=== PATIENT | male | born 1970 | race African-American/Black ===

== ENCOUNTER 2021-09-03 10:22 | Inpatient (IN) | payer MEDICAID ==
[~2021-09-03] VITALS: Ht 182.9 cm; Wt 104.3 kg
[2021-09-03] MEDS ORDERED: SODIUM CHLORIDE 0.9% 1,000 ML IV ONE ×2 (11:00)
[2021-09-03 11:21] LABS: BASOPHILS % 0.9 % (0.0-2.0); EOSINOPHILS % 0.8 % (0.0-5.0); HEMATOCRIT. 40.3 % (42.0-52.0); HEMOGLOBIN. 14.7 g/dL (14.0-18.0); LYMPHOCYTES % 25.5 % (20.0-50.0); MEAN CORPUSCULAR HEMOGLOBIN 32.2 pg (28.0-32.0); MEAN CORPUSCULAR VOLUME 88.3 fL (80.0-94.0); MEAN PLATELET VOLUME 10.8 fl (7.4-10.4); MONOCYTES % 6.3 % (2.0-8.0); NEUTROPHILS % 66.5 % (40.0-76.0); PLATELET 227 x1000/uL (130-400); RED BLOOD CELL COUNT 4.56 mill/uL (4.7-6.1); RED CELL DISTRIBUTION WIDTH 13.5 % (11.6-14.6)
[2021-09-03 11:27] LABS: CHLORIDE 95 mEq/L (98-107)
[2021-09-03 11:45] LABS: CLARITY URINE CLEAR (CLEAR); COLOR URINE YELLOW (YELLOW); KETONES URINE 1+ (NEGATIVE); LEUKOCYTE ESTERASE URINE NEGATIVE (NEGATIVE); NITRITE URINE NEGATIVE (NEGATIVE); OCCULT BLOOD URINE TRACE (NEGATIVE); PH URINE 5.5 (4.5-8.0); PROTEIN URINE NEGATIVE (NEGATIVE); SPECIFIC GRAVITY URINE 1.038 (1.005-1.030); UROBILINOGEN URINE 0.2 E.U./dL (0.2-1.0)
[2021-09-03 12:28] LABS: BETA HYDROXYBUTYRATE 1.8 mMol/L (0.0-0.3)
[2021-09-03] MEDS ORDERED: INSULIN REGULAR (HUMULIN R) 300UNITS/3ML VIAL IV ONE (13:00)
[2021-09-03] MEDS ORDERED: MAGNESIUM/ALUMINUM HYDROXIDE/SIMETHICONE 30ML UDC PO PRN (16:45)
[2021-09-03] MEDS ORDERED: DIPHENHYDRAMINE 50MG/ML VIAL IV PRN (16:45)
[2021-09-03] MEDS ORDERED: ZOLPIDEM TARTRATE 5MG TABLET PO PRN (16:45)
[2021-09-03] MEDS ORDERED: ONDANSETRON HCL 4MG/2ML INJ IV PRN (16:45)
[2021-09-03] MEDS ORDERED: ACETAMINOPHEN 325MG TABLET PO PRN ×2 (16:45)
[2021-09-03] MEDS ORDERED: CLONIDINE 0.1MG TABLET PO PRN (16:45)
[2021-09-03] MEDS ORDERED: DEXTROSE 50% WATER 50ML SYRINGE IV PRN (16:45)
[2021-09-03] MEDS: BLOOD SUGAR DIAGNOSTIC STRIP TEST SCH ×2 (17:00→21:29)
[2021-09-03] MEDS: INSULIN LISPRO 100 UNITS/ML SUBCUT SCH ×2 (18:27→21:30)
[2021-09-03] MEDS: METFORMIN HCL 500MG TABLET PO SCH (18:32)
[2021-09-03 20:45] VITALS: BP 140/80
[2021-09-03] MEDS ORDERED: ATORVASTATIN CALCIUM 20MG TABLET PO SCH (21:00)
[2021-09-03] MEDS: SODIUM CHLORIDE 0.9% INJ 3ML FLUSH IVF SCH (21:34)
[2021-09-03] MEDS ORDERED: INSULIN GLARGINE UD 100 UNITS/ML SYR SUBCUT SCH (22:00)
[2021-09-04] VITALS: BP 125/74
[2021-09-04 04:00] VITALS: BP 145/78
[2021-09-04] MEDS: SODIUM CHLORIDE 0.9% INJ 3ML FLUSH IVF SCH ×2 (05:29→13:05)
[2021-09-04] MEDS: BLOOD SUGAR DIAGNOSTIC STRIP TEST SCH ×2 (07:29→11:57)
[2021-09-04 07:31] LABS: CHLORIDE 107 mEq/L (98-107)
[2021-09-04 07:37] LABS: PHOSPHORUS 3.2 mg/dL (2.5-4.9)
[2021-09-04 08:00] VITALS: BP 113/62
[2021-09-04] MEDS ORDERED: CHOLECALCIFEROL (D3) 1000 UNIT TABLET PO SCH (09:00)
[2021-09-04] MEDS: METFORMIN HCL 500MG TABLET PO SCH (09:05)
[2021-09-04] MEDS: INSULIN LISPRO 100 UNITS/ML SUBCUT SCH ×2 (09:13→13:03)
[2021-09-04 12:00] VITALS: BP 107/69
[2021-09-04 15:27] VITALS: BP 113/62
== END 2021-09-04 16:08 | disposition home or self-care (01) | DRG 420 ==
LOC: ER 10:22 → 6EST 14:29 → EDBEDREQ 14:33 → EDBEDREQTM 14:33 → EDBEDREQSVC 15:24 → EDBEDREQ 15:24 → ENRESERV 19:01
PROVIDERS: ADMIT Internal Medicine; ATTEND Internal Medicine
DX: E11.00 Type 2 diabetes mellitus with hyperosmolarity without nonketotic hyperglycemic-hyperosmolar coma (NKHHC) (principal); E87.1 Hypo-osmolality and hyponatremia; E78.00 Pure hypercholesterolemia, unspecified; Z79.84 Long term (current) use of oral hypoglycemic drugs; Z83.3 Family history of diabetes mellitus; Z79.4 Long term (current) use of insulin; Z20.822 Contact with and (suspected) exposure to COVID-19; E11.65 Type 2 diabetes mellitus with hyperglycemia
CPT/HCPCS: 36415; 71045; 80048; 80053; 81003; 82010; 82962; 83036; 83735; 83930; 84100; 84484; 85025; 86592; 87426; 93005; 99285; J1815; J7030

== ENCOUNTER 2021-09-07 17:07 | Emergency (ER) | payer MEDICAID ==
[~2021-09-07] VITALS: Ht 180.3 cm; Wt 105.0 kg
[2021-09-07] MEDS ORDERED: FLUORESCEIN SODIUM 1MG/STRIP BOTHEYE ONE (20:30)
[2021-09-07] MEDS ORDERED: TETRACAINE 0.5% OPHTH DROPS 4ML BOTHEYE ONE (20:30)
[2021-09-07] MEDS ORDERED: POLY10DR3 EACHEYE (21:29)
[2021-09-07 21:37] VITALS: BP 132/86
== END 2021-09-07 21:38 | disposition home or self-care (01) ==
LOC: ER 17:07
DX: H10.021 Other mucopurulent conjunctivitis, right eye (principal); E11.9 Type 2 diabetes mellitus without complications; E78.00 Pure hypercholesterolemia, unspecified
CPT/HCPCS: 82962; 99283